=== PATIENT | male | born 1970 | race Hispanic/Latino ===

== ENCOUNTER 2019-05-16 10:05 | Emergency (ER) | payer SELFPAY ==
--- NOTE | 2019-05-16 14:15 | RAD ---
CHEST TWO VIEWS: 05/16/19 The heart is normal in size and the lungs are clear. No infiltrate or effusion was seen. A calcified granuloma is noted in the left mid lung zone. The mediastinum appears normal. IMPRESSION: No acute thoracic findings. POS: HOME
--- NOTE | 2019-05-16 14:16 | RAD ---
CERVICAL SPINE THREE VIEWS: 05/16/19 No fracture, dislocation, or disc space narrowing was seen. The C1 to dens distance is normal and the soft tissues are normal in thickness. IMPRESSION: No acute findings. POS: HOME
== END 2019-05-16 10:58 | disposition home or self-care (01) ==
LOC: BURERS 10:05
DX: S39.012A Strain of muscle, fascia and tendon of lower back, initial encounter (principal); S16.1XXA Strain of muscle, fascia and tendon at neck level, initial encounter; S20.212A Contusion of left front wall of thorax, initial encounter; V89.2XXA Person injured in unspecified motor-vehicle accident, traffic, initial encounter
CPT/HCPCS: 71046; 72040